=== PATIENT | female | born 1945 | race Caucasian/White ===

== ENCOUNTER 2019-05-08 08:13 | Inpatient (IN) | payer OTHER ==
[2019-05-08] MEDS ORDERED: METOPROLOL TAR 50 MG TAB ONE (08:36)
--- NOTE | 2019-05-08 09:00 | RAD REPORT ---
EXAM DESCRIPTION: RAD - Chest Single View - 05/08/2019 8:44 am CLINICAL HISTORY: PALPITATIONS Chest pain. COMPARISON: CHEST PA AND LAT 2 VIEW dated 10/15/2010 FINDINGS: Portable technique limits examination quality. The lungs are grossly clear. The heart is normal in size. No displaced fractures.Thoracic dextroscoli osis. IMPRESSION: No acute intrathoracic process suspected.
[2019-05-08] MEDS ORDERED: FAMOTIDINE 20 MG/2 ML VIAL IV ONE (09:02)
[2019-05-08] MEDS ORDERED: NA CHLORIDE 0.9% 1,000 ML ONE (09:02)
[2019-05-08] MEDS ORDERED: METOPROLOL TARTRATE 5 MG/5 ML INJ IV ONE (09:02)
[2019-05-08] MEDS ORDERED: ENOXAPARIN 80 MG/0.8 ML SQ ONE (09:02)
[2019-05-08 09:06] LABS: Absolute Lymphocytes (CBC) 1.4 K/uL (0.7-4.9); Basophils % 0.7 % (0-1.3); Hematocrit 43.2 % (36.0-45.0); Lymphocytes % 21.8 % (15.3-44.8); MPV 8.6 fL (7.6-11.3); Protime INR 0.98; RBC Red Blood Cell Count 4.74 M/uL (3.86-4.86)
[2019-05-08 09:20] LABS: ALT/SGPT 32 U/L (12-78); AST/SGOT 24 U/L (15-37); Albumin 3.9 g/dL (3.4-5.0); Alkaline Phosphatase 92 U/L (45-117); BUN Blood Urea Nitrogen 10 mg/dL (7-18); Bicarbonate 26 mmol/L (21-32); Bilirubin Direct 0.2 mg/dL (0-0.2); Bilirubin Total 0.8 mg/dL (0.2-1.0); Glucose Level 112 mg/dL (74-106); Magnesium 2.3 mg/dL (1.8-2.4); NT PRO-BNP 182 pg/mL (<125); Potassium 3.9 mmol/L (3.5-5.1); Protein, Total 7.1 g/dL (6.4-8.2); Sodium Level 145 mmol/L (136-145); Troponin (Emerg Dept Use Only) < 0.02 ng/mL (0.0-0.045)
--- NOTE | 2019-05-08 09:49 | ER ---
Nurse's Notes [facility] Name: Kori Dotson Age: 73 yrs Sex: Female : 1945 Arrival Date: 05/08/2019 Time: 08:17 Bed 3 Private MD: Diagnosis: Atrial fibrillation and flutter-new onset Presentation: 05/08 08:15 Presenting complaint: EMS states: Palpitations and SOB started upon waking at 0615, EKG jl7 showed A. Fib at 150s, gave 20 mg total of Cardizem and HR is now 110s, pt reports resting HR is normally 40-50 bpm. Transition of care: patient was not received from another setting of care. Onset of symptoms was May 08, 2019 at 06:15. Risk Assessment: Do you want to hurt yourself or someone else? Patient reports no desire to harm self or others. Initial Sepsis Screen: Does the patient meet any 2 criteria? No. Patient's initial sepsis screen is negative. Does the patient have a suspected source of infection? No. Patient's initial sepsis screen is negative. Care prior to arrival: Medication(s) given: Normal saline infusion, 250 mL 20 mg Cardizem IV initiated. 20 GA, in the right antecubital area. 08:29 Method Of Arrival: EMS: [facility] jl7 08:29 Acuity: HARSH 2 jl7 Historical: - Allergies: 08:32 PENICILLINS; jl7 - Home Meds: 08:32 amlodipine oral [Active]; olmesartan oral oral [Active]; jl7 - PMHx: 08:32 Hypertension; jl7 - Immunization history:: Adult Immunizations not up to date. - Social history:: Smoking status: Patient/guardian denies using tobacco. - Ebola Screening: : No symptoms or risks identified at this time. Screenin:34 Abuse screen: Denies threats or abuse. Denies injuries from another. Nutritional jl7 screening: No deficits noted. Tuberculosis screening: No symptoms or risk factors identified. Fall Risk IV access (20 points). Total Moon Fall Scale indicates No Risk (0-24 pts). Assessment: 08:15 General: Appears in no apparent distress. uncomfortable, Behavior is calm, cooperative, jl7 appropriate for age. Pain: Denies pain. Neuro: Level of Consciousness is awake, alert, obeys commands, Oriented to person, place, time, situation. Cardiovascular: Reports palpitations, shortness of breath, Denies chest pain, Heart tones present Patient's skin is warm and dry. Respiratory: Airway is patent Respiratory effort is even, unlabored, Respiratory pattern is regular, symmetrical, Breath sounds are clear bilaterally. GI: No signs and/or symptoms were reported involving the gastrointestinal system. : No signs and/or symptoms were reported regarding the genitourinary system. EENT: No signs and/or symptoms were reported regarding the EENT system. Derm: Skin is pink, warm \\T\\ dry. 09:11 Reassessment: Pt reports "I have an irregular HR and my resting HR is normally 40-50 [facility] bpm." Pt's states "Sometimes when she's sleeping her HR drops to 29." ERP aware. 10:00 Reassessment: Patient appears in no apparent distress at this time. Patient and/or jl7 family updated on plan of care and expected duration. Pain level reassessed. Patient is alert, oriented x 3, equal unlabored respirations, skin warm/dry/pink. Patient states symptoms have improved. 12:17 Reassessment: Dr. Tolbert at bedside. jl7 12:33 Reassessment: Attempted to call report, nurse unavailable. jl7 Vital Signs: 08:15 BP 126 / 91; Pulse 120; Resp 16 S; Pulse Ox 100% on R/A; Pain 0/10; jl7 08:34 BP 99 / 79; Pulse 105; Resp 16 S; Pulse Ox 100% on R/A; jl7 08:50 BP 105 / 67; Pulse 109; Temp 97.6(O); jl7 08:52 Weight 65.32 kg (R); jl7 09:00 BP 113 / 76; Pulse 95; Resp 17; Pulse Ox 100% ; sv 09:32 BP 101 / 83; Pulse 59; Resp 16 S; Pulse Ox 100% on R/A; jl7 10:51 BP 92 / 71; Pulse 61; Resp 15 S; Pulse Ox 100% on R/A; jl7 12:00 BP 94 / 67; Pulse 75; Resp 17; Pulse Ox 97% ; sv 12:45 BP 117 / 82; Pulse 85; Resp 20; Pulse Ox 100% on R/A; sv ED Course: 08:15 EKG done, by sound engineering technician. reviewed by Randell Stiles NP. tc 08:15 Maintain EMS IV. Dressing intact. Good blood return noted. Site clean \\T\\ dry. Gauge \\T\\ jl 7 site: 20 right AC. 08:15 Patient has correct armband on for positive identification. Placed in gown. Bed in low jl7 position. Call light in reach. Side rails up X2. equipment monitor phototypesetting on. Pulse ox on. NIBP on. Warm blanket given. 08:17 Patient arrived in ED. ss 08:18 Randell Stiles, BAG LOADER is PHCP. pm1 08:18 Stiven Tamez MD is Attending Physician. pm1 08:29 Kevin Neal RN is Primary Nurse. jl7 08:32 Triage completed. jl7 08:34 Arm band placed on right wrist. jl7 08:44 XRAY Chest (1 view) In Process Unspecified. EDMS 09:44 Rip Denney is Hospitalizing Provider. pm1 09:44 Repeat EKG was done. sm3 09:58 Echocardiogram with doppler done by cdl service technician. tc 11:13 Awaiting bed assignment. sv 13:03 No provider procedures requiring assistance completed. Patient admitted, IV remains in sv place. intact. Administered Medications: 08:35 Drug: NS 0.9% 1000 ml Route: IV; Rate: 1000 ml; Site: right antecubital; jl7 09:42 Follow up: Response: No adverse reaction; IV Status: Completed infusion; IV Intake: jl7 1000ml 08:52 Drug: Lopressor (metoprolol TARTRATE) 50 mg Route: PO; jl7 09:41 Follow up: Response: No adverse reaction jl7 09:23 Drug: Lovenox 1 mg/kg Route: Sub-Q; Site: right lower abdomen; jl7 09:41 Follow up: Response: No adverse reaction jl7 09:23 Drug: NS 0.9% 1000 ml Route: IV; Rate: 1 bolus; Site: right antecubital; jl7 09:32 Drug: Pepcid 20 mg Route: IVP; Site: right antecubital; jl7 09:42 Follow up: Response: No adverse reaction jl7 09:41 Not Given (Hemodynamic Parameters): Lopressor 2.5 mg IVP once; Hold for SBP <100 or HR jl7 <60. 09:41 Not Given (Hemodynamic Parameters): Lopressor 2.5 mg IVP once; Hold for SBP <100 or HR jl7 <60. Intake: 09:42 IV: 1000ml; Total: 1000ml. jl7 Outcome: 09:48 Decision to Hospitalize by Provider. pm1 13:04 Admitted to Tele accompanied by tech, via stretcher, room 203, with chart, Report sv called to Alvina BELTRAN 13:04 Condition: stable 13:04 Instructed on the need for admit. 13:25 Patient left the ED. sv Signatures: Dispatcher [employer] Jayda Coombs, RN RN Marcella Ruffin, RN RN ss Rose Castle, vehicle refinisher EKG Ttc Randell Stiles, BAG LOADER BAG LOADER pm1 Kevin Neal RN RN jl7 Janet Martinez 3
--- NOTE | 2019-05-08 09:49 | EDPHYS ---
Physician Documentation [facility] Name: Kori Dotson Age: 73 yrs Sex: Female : 1945 Arrival Date: 05/08/2019 Time: 08:17 Bed 3 Private MD: ED Physician Stiven Tamez HPI: 05/08 08:36 This 73 yrs old Female presents to ER via EMS with complaints of Palpitations.pm1 08:36 The patient presents with a history of heart racing. Context: The symptoms occur at pm1 rest. Onset: The symptoms/episode began/occurred this morning. Duration: The patient or guardian reports a single episode, that is still ongoing, but improving. Modifying factors: The symptoms are alleviated by given medication by EMS. Associated signs and symptoms: Pertinent negatives: anxiety, chest pain, cough, fever, nausea, SOB, vomiting. Severity of symptoms: in the emergency department the symptoms have improved Pain is currently a 0 / 10. The patient has not experienced similar symptoms in the past. The patient has not recently seen a physician, the patient's primary care provider is Dr. Hernandez, [facility]. Patient woke up this AM with palpitations. Denies history of atrial fibrillation, but reports sinus arrythmia. Patient took aspirin this AM and tried to calm down to see if palpitations would resolve. No improvement so called EMS. On EMS arrival patient with heart rate in 160's. Given Cardizem IV in route to ER. Historical: - Allergies: 08:32 PENICILLINS; jl7 - Home Meds: 08:32 amlodipine oral [Active]; olmesartan oral oral [Active]; jl7 - PMHx: 08:32 Hypertension; jl7 - Immunization history:: Adult Immunizations not up to date. - Social history:: Smoking status: Patient/guardian denies using tobacco. - Ebola Screening: : No symptoms or risks identified at this time. ROS: 08:36 Constitutional: Negative for fever, chills, and weight loss, Eyes: Negative for injury, pm1 pain, redness, and discharge, ENT: Negative for injury, pain, and discharge. 08:36 Neck: Negative for injury, pain, and swelling, Respiratory: Negative for shortness of breath, cough, wheezing, and pleuritic chest pain, Abdomen/GI: Negative for abdominal pain, nausea, vomiting, diarrhea, and constipation, Back: Negative for injury and pain, : Negative for injury, bleeding, discharge, and swelling, MS/Extremity: Negative for injury and deformity, Skin: Negative for injury, rash, and discoloration, Neuro: Negative for headache, weakness, numbness, tingling, and seizure. 08:36 Cardiovascular: Positive for palpitations, Negative for chest pain, edema. Exam: 08:36 Constitutional: This is a well developed, well nourished patient who is awake, alert, pm1 and in no acute distress. Head/Face: Normocephalic, atraumatic. Neck: Trachea midline, no thyromegaly or masses palpated, and no cervical lymphadenopathy. Supple, full range of motion without nuchal rigidity, or vertebral point tenderness. No Meningismus. Chest/axilla: Normal chest wall appearance and motion. Nontender with no deformity. No lesions are appreciated. 08:36 Respiratory: Lungs have equal breath sounds bilaterally, clear to auscultation and percussion. No rales, rhonchi or wheezes noted. No increased work of breathing, no retractions or nasal flaring. Abdomen/GI: Soft, non-tender, with normal bowel sounds. No distension or tympany. No guarding or rebound. No evidence of tenderness throughout. Back: No spinal tenderness. No costovertebral tenderness. Full range of motion. Skin: Warm, dry with normal turgor. Normal color with no rashes, no lesions, and no evidence of cellulitis. MS/ Extremity: Pulses equal, no cyanosis. Neurovascular intact. Full, normal range of motion. 08:36 Cardiovascular: Rate: tachycardic, Rhythm: irregular, Pulses: no pulse deficits are appreciated, Heart sounds: normal, Edema: is not appreciated. 08:36 Neuro: Orientation: is normal, Motor: is normal, moves all fours. Vital Signs: 08:15 BP 126 / 91; Pulse 120; Resp 16 S; Pulse Ox 100% on R/A; Pain 0/10; jl7 08:34 BP 99 / 79; Pulse 105; Resp 16 S; Pulse Ox 100% on R/A; jl7 08:50 BP 105 / 67; Pulse 109; Temp 97.6(O); jl7 08:52 Weight 65.32 kg (R); jl7 09:00 BP 113 / 76; Pulse 95; Resp 17; Pulse Ox 100% ; sv 09:32 BP 101 / 83; Pulse 59; Resp 16 S; Pulse Ox 100% on R/A; jl7 10:51 BP 92 / 71; Pulse 61; Resp 15 S; Pulse Ox 100% on R/A; jl7 12:00 BP 94 / 67; Pulse 75; Resp 17; Pulse Ox 97% ; sv 12:45 BP 117 / 82; Pulse 85; Resp 20; Pulse Ox 100% on R/A; sv MDM: 08:18 Patient medically screened. pm1 08:40 ED course: Patient was given Cardizem by EMS prior to arrival. I did not given them pm1 orders or approval to give Cardizem in route. 09:43 Data reviewed: vital signs. Data interpreted: Pulse oximetry: on room air is 100 %. pm1 Interpretation: normal. Counseling: I had a detailed discussion with the patient and/or guardian regarding: the historical points, exam findings, and any diagnostic results supporting the discharge/admit diagnosis, lab results, radiology results, the need for further work-up and treatment in the hospital. 09:50 Physician consultation: Rip Denney was called at 09:50, was contacted at 09:50, pm1 regarding admission, patient's condition, and will see patient would like consultation with Dr. Locke I contact cardiology articulation officer. 09:57 Physician consultation: Néstor Tolbert MD was called at 09:57, was contacted at 09:57, pm1 regarding consult, patient's condition, and will see patient would like medications started, Betapace 80 mg PO BID. 05/08 08:18 Order name: Basic Metabolic Panel; Complete Time: 09:27 pm1 05/08 08:18 Order name: CBC with Diff; Complete Time: :27 pm1 05/08 08:18 Order name: LFT's; Complete Time: :27 pm1 05/08 08:18 Order name: Magnesium; Complete Time: :27 pm1 05/08 08:18 Order name: NT PRO-BNP; Complete Time: 09:27 pm1 05/08 08:18 Order name: PT-INR; Complete Time: 09:27 pm1 05/08 08:18 Order name: Troponin (emerg Dept Use Only); Complete Time: 09:27 pm1 05/08 08:20 Order name: TSH; Complete Time: 09:27 pm1 05/08 11:30 Order name: Basic Metabolic Panel EDMS 05/08 11:30 Order name: Basic Metabolic Panel EDMS 05/08 11:30 Order name: CBC with Automated Diff EDMS 05/08 11:30 Order name: CBC with Automated Diff EDMS 05/08 11:30 Order name: Troponin I EDMS 05/08 11:30 Order name: Troponin I EDMS 05/08 08:18 Order name: XRAY Chest (1 view); Complete Time: 09:27 pm1 05/08 08:18 Order name: EKG; Complete Time: 08:19 pm1 05/08 08:49 Order name: Echo w/ Doppler malachi 05/08 10:58 Order name: EKG Electrocardiogram EDMS 05/08 11:26 Order name: Diet Heart Healthy; Complete Time: 11:26 jl7 05/08 11:30 Order name: CONS Physician Consult EDMS 05/08 11:30 Order name: Heart Healthy EDMS 05/08 11:30 Order name: EKG Electrocardiogram EDMS 05/08 11:30 Order name: Troponin I EDMS 05/08 08:18 Order name: Cardiac monitoring; Complete Time: 08:35 pm1 05/08 08:18 Order name: EKG - Nurse/Tech; Complete Time: 08:50 pm1 05/08 08:18 Order name: IV Saline Lock; Complete Time: 08:50 pm1 05/08 08:18 Order name: Labs collected and sent; Complete Time: 08:50 pm1 05/08 08:18 Order name: O2 Per Protocol; Complete Time: 08:35 pm1 05/08 08:18 Order name: O2 Sat Monitoring; Complete Time: 08:35 pm1 05/08 11:30 Order name: EKG Electrocardiogram EDMS 05/08 11:30 Order name: EKG Electrocardiogram EDMS 05/08 11:30 Order name: EKG Electrocardiogram EDMS Administered Medications: 08:35 Drug: NS 0.9% 1000 ml Route: IV; Rate: 1000 ml; Site: right antecubital; jl7 09:42 Follow up: Response: No adverse reaction; IV Status: Completed infusion; IV Intake: jl7 1000ml 08:52 Drug: Lopressor (metoprolol TARTRATE) 50 mg Route: PO; jl7 09:41 Follow up: Response: No adverse reaction 09:23 Drug: Lovenox 1 mg/kg Route: Sub-Q; Site: right lower abdomen; 09:41 Follow up: Response: No adverse reaction 09:23 Drug: NS 0.9% 1000 ml Route: IV; Rate: 1 bolus; Site: right antecubital; jl7 09:32 Drug: Pepcid 20 mg Route: IVP; Site: right antecubital; 09:42 Follow up: Response: No adverse reaction :41 Not Given (Hemodynamic Parameters): Lopressor 2.5 mg IVP once; Hold for SBP <100 or HR jl7 <60. 09:41 Not Given (Hemodynamic Parameters): Lopressor 2.5 mg IVP once; Hold for SBP <100 or HR jl7 <60. Disposition: 05/09 05:46 Co-signature as Attending Physician, Stiven Tamez MD I agree with the assessment and malachi plan of care. Disposition: 05/08/19 09:48 Hospitalization ordered by Rip Denney for Inpatient Admission. Preliminary diagnosis is Atrial fibrillation and flutter - new onset. - Bed requested for Telemetry/MedSurg (Inpatient). - Status is Inpatient Admission. sv - Condition is Stable. - Problem is new. - Symptoms have improved. UTI on Admission? No Signatures: Dispatcher [employer] EDMS Lara Hackett Stephanie, RN Stiven Chau MD MD cha Marinas, Patrick, SENIOR COST ESTIMATOR SENIOR COST ESTIMATOR pm1 Kevin Neal RN RN jl7 Corrections: (The following items were deleted from the chart) 05/08 11:24 09:48 Hospitalization Ordered by Rip Denney for Observation. Preliminary diagnosis pm1 is Atrial fibrillation and flutter - new onset. Bed requested for Telemetry/MedSurg (observation). Status is Observation. Condition is Stable. Problem is new. Symptoms have improved. UTI on Admission? No. pm1 11:40 11:24 05/08/2019 09:48 Hospitalization Ordered by Rip Denney for Inpatient bd Admission. Preliminary diagnosis is Atrial fibrillation and flutter - new onset. Bed requested for Telemetry/MedSurg (Inpatient). Status is Inpatient Admission. Condition is Stable. Problem is new. Symptoms have improved. UTI on Admission? No. pm1 13:25 11:40 05/08/2019 09:48 Hospitalization Ordered by Rip Denney for Inpatient sv Admission. Preliminary diagnosis is Atrial fibrillation and flutter - new onset. Bed requested for Telemetry/MedSurg (Inpatient). Status is Inpatient Admission. Condition is Stable. Problem is new. Symptoms have improved. UTI on Admission? No. bd
--- NOTE | 2019-05-08 12:28 | EKG ---
Test Date: 2019-05-08 Test Time: 08:16:53 Aircraft Shipping Checker: AV MEASUREMENT RESULTS: Intervals: Rate: 106 [place]: QRSD: 82 QT: 362 QTc: 480 [place]: P: [place]: QRS: -27 T: 30 INTERPRETIVE STATEMENTS: Atrial fibrillation with rapid ventricular response with premature ventricular or aberrantly conducted complexes Low voltage QRS Cannot rule out Anterior infarct, age undetermined Abnormal ECG Compared to ECG 10/15/2010 14:39:38 Ventricular premature complex(es) now present Low QRS voltage now present Myocardial infarct finding now present Sinus bradycardia no longer present T-wave abnormality no longer present Electronically Signed On 05-08-19 12:26:39 CDT by Néstor Tolbert
--- NOTE | 2019-05-08 12:28 | EKG ---
Test Date: 2019-05-08 Test Time: 09:30:50 Corset Fitter: ELY MEASUREMENT RESULTS: Intervals: Rate: 68 [place]: QRSD: 80 QT: 400 QTc: 425 [place]: P: [place]: QRS: -18 T: 14 INTERPRETIVE STATEMENTS: Atrial fibrillation Low voltage QRS Septal infarct, age undetermined Abnormal ECG Compared to ECG 05/08/2019 08:16:53 Ventricular premature complex(es) no longer present Myocardial infarct finding still present Electronically Signed On 05-08-19 12:26:29 CDT by Néstor Tolbert
--- NOTE | 2019-05-08 12:45 | P.HP ---
Certification for Inpatient Patient admitted to: Observation With expected LOS: <2 Midnights Patient will require the following post-hospital care: None Practitioner: I am a practitioner with admitting privileges, knowledge of patient current condition, hospital course, and medical plan of care. 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 EMS found her with a heart rate in the 160s. She was given a dose of IV Cardizem 20 mg. Her heart rate in the ED had improved to 117 that was in atrial fibrillation. She was given Lopressor 50 mg x 1 dose. Her heart rate improved to the 60s but still in atrial fibrillation. Initial troponin is negative. BMP and CBC unremarkable. She denied any chest pain or shortness of breath. She stated her last stress test and echocardiogram was in March 2019. Patient is placed under observation for further management of new onset AFib. Allergies Penicillins Allergy (Verified 05/08/19 12:00) UNK Home medications list reviewed: Yes - Past Medical/Surgical History Diabetic: No -: Hypertension -: Irregular heartbeat -: Bilateral total knee replacement - Family History Father Notes: Father had bradycardia - Social History Smoking Status: Never smoker Alcohol use: No CD- Drugs: No Caffeine use: No Place of Residence: Home Review of Systems 10-point ROS is otherwise unremarkable Other: General: No fever, no malaise, no unintentional weight loss. Eyes: No eye discharge, Respiratory: No cough, no shortness of breath. CVS: No chest pain, no lightheadedness. GI: No abdominal pain, no nausea no vomit, no constipation, no diarrhea. Genitourinary: No dysuria, no urinary frequency, no incontinence, no hematuria. Musculoskeletal: No joint pains, or joint swelling, no gait instability. Neurology: No headache, no asymmetric, weakness, no problem with swallowing. Except as documented, all other systems reviewed and negative. Physical Examination - Physical Exam General: Alert, In no apparent distress, Oriented x3, Cooperative HEENT: Atraumatic, Normocephalic, PERRLA, Mucous membr. moist/pink Neck: Supple, JVD not distended, No Thyromegaly Respiratory: Clear to auscultation bilaterally, Normal air movement Cardiovascular: No edema, Normal pulses, Irregular heart rate/rhythm Capillary refill: <2 Seconds Gastrointestinal: Normal bowel sounds, Soft and benign, No tenderness Musculoskeletal: No clubbing, No swelling Integumentary: No rashes, No erythema, No cyanosis Neurological: Normal gait, Normal speech, Normal strength at 5/5 x4 extr, Normal affect Lymphatics: No axilla or inguinal lymphadenopathy - Studies Laboratory Data (last 24 hrs) 05/08/19 08:47: PT 11.6, INR 0.98 05/08/19 08:47: WBC 6.5, Hgb 14.6, Hct 43.2, Plt Count 217 05/08/19 08:47: Sodium 145, Potassium 3.9, BUN 10, Creatinine 0.93, Glucose 112 H, Magnesium 2.3, Total Bilirubin 0.8, AST 24, ALT 32, Alkaline Phosphatase 92 Imagings Data: Chest x-ray: No acute intrathoracic process EKG: Atrial fibrillation. Assessment and Plan - Problems (Diagnosis) (1) Atrial fibrillation Current Visit: Yes Status: Acute - Plan Place under observation in telemetry. Continue to trend troponin Echocardiogram has been performed in the ED, results to be followed. Borderline [id number] Score: 2. Cardiology consult Dr. Tolbert recommended [place]. Patient given a dose of Lovenox in the ED Anticoagulation per cardiology recommendation. Hold home antihypertensives due to borderline hypotension. Discharge Plan: Home - Advance Directives Does patient have a Living Will: Yes Does patient have a Durable POA for Healthcare: No - Code Status/Comfort Care Code Status Assessed: Yes Code Status: Full Code
[2019-05-08 13:50] VITALS: BMI 25.4
--- NOTE | 2019-05-08 14:04 | ECHO ---
HEIGHT: 5 ft 3 in WEIGHT: 143 lb 8 oz DATE OF STUDY: 05/08/[address]: Stiven Tamez MD 2-DIMENSIONAL: YES M.MODE: YES DOPPLER: YES COLOR FLOW: YES TDS: NO PORTABLE: YES DEFINITY: NO BUBBLE STUDY: NO DIAGNOSIS: ATRIAL FIBRILLATION NEW ONSET CARDIAC HISTORY: CATHERIZATION: NO SURGERY: NO PROSTHETIC VALVE: NO PACEMAKER: NO MEASUREMENTS (cm) DIASTOLIC (NORMALS) SYSTOLIC (NORMALS) IVSd 1.0 (0.6-1.2) LA Diam 3.7 (1.9-4.0) LVEF 69% LVIDd 4.0 (3.5-5.7) LVIDs 2.5 (2.0-3.5) %FS 38% LVPWd 1.0 (0.6-1.2) Ao Diam 2.6 (2.0-3.7) 2 DIMENSIONAL ASSESSMENT: RIGHT ATRIUM: NORMAL LEFT ATRIUM: NORMAL RIGHT VENTRICLE: NORMAL LEFT VENTRICLE: NORMAL TRICUSPID VALVE: NORMAL MITRAL VALVE: NORMAL PULMONIC VALVE: NORMAL AORTIC VALVE: NORMAL PERICARDIAL EFFUSION: NONE AORTIC ROOT: NORMAL LEFT VENTRICULAR WALL MOTION: NORMAL. DOPPLER/COLOR FLOW: MILD TRICUSPID REGURGITATION. NORMAL RIGHT VENTRICULAR SYSTOLIC PRESSURE. COMMENTS: NORMAL 2D ECHO. MILD TRICUSPID REGURGITATION. ATRIAL FIBRILLATION HEART RATE 65 BEATS PER MINUTE. TECHNOLOGIST: LENCHO HUANG
--- NOTE | 2019-05-08 16:12 | CON ---
History Of Present Illness: Mrs. Dotson is 73. She came to the hospital because she called EMS. He r heart was racing. She has had an irregular heartbeat. Apparently, she was treated with by Dr. Hank Cooper. She takes amlodipine and olmesartan for hypertension. She does not recognize the word atri al fibrillation. She has never felt exactly like she had this morning, but she insists she has an ir regular heartbeat all the time. She is not on an anticoagulant. She uses no tobacco. Does not have diabetes or dyslipidemia. Every year, she gets a stress test and other testing by Dr. Cooper and nakita woodruff looks good. No history of myocardial infarction, stroke, or vascular surgery, stents or othe r heart surgeries. She has had bilateral knee joint replacement surgery. Medications: Outpatient medications have been amlodipine and olmesartan. Physical Examination: General: She appears to be her stated age of 73. Vital Signs: Blood pressure is 100/60 and heart rate is in the 60s. It is irregularly irregular and the monitor shows AFib. Lungs: Clear. Heart: Normal except for the irregular rhythm. Abdomen: Soft. Extremities: Normal. No cyanosis, clubbing, or edema. Distal pulses normal. Diagnostic Data: Electrocardiogram shows AFib. No other abnormalities. Impression: The patient has atrial fibrillation. It is probably new. I doubt if her irregular hear tbeat is atrial fibrillation. I would have thought she would be on an anticoagulant and know the nam e of atrial fibrillation that she was. I think the atrial fibrillation is new and her previous rhyth m was probably premature ventricular contractions. We will give her Betapace if we can establish sin us rhythm. We will give her full anticoagulation and when she goes home, she should probably be on Betapace and olmesartan and Xarelto or Eliquis. JEANMARIE/EDWARD Voice ID: [id number] Report ID: [id number]
[2019-05-08] MEDS: SOTALOL HCL 80 MG TAB PO SCH (17:54)
[2019-05-09 02:37] VITALS: O2SAT 98
[2019-05-09] MEDS: SOTALOL HCL 80 MG TAB PO SCH (05:28)
[2019-05-09 05:58] LABS: Absolute Lymphocytes (CBC) 1.6 K/uL (0.7-4.9); Basophils % 0.7 % (0-1.3); Hematocrit 39.9 % (36.0-45.0); Lymphocytes % 23.8 % (15.3-44.8); MPV 8.6 fL (7.6-11.3); RBC Red Blood Cell Count 4.49 M/uL (3.86-4.86)
[2019-05-09 06:15] LABS: Potassium 3.9 mmol/L (3.5-5.1)
[2019-05-09 06:21] LABS: Urine Appearance CLEAR; Urine Bilirubin NEGATIVE (NEG); Urine Blood NEGATIVE (NEG); Urine Color YELLOW; Urine Glucose NEGATIVE (NEG); Urine Microscopic Reflex NO UMIC; Urine Protein NEGATIVE (NEG); Urine Urobilinogen 0.2 mg/dL (0.2-1.0)
[2019-05-09] MEDS ORDERED: APIXABAN 5 MG TABLET PO SCH (09:00)
[2019-05-09] MEDS ORDERED: ASPIRIN EC 81 MG TAB PO SCH (09:00)
[2019-05-09 09:40] VITALS: BP 94/44; TEMP 97.3
--- NOTE | 2019-05-09 12:11 | EKG ---
Test Date: 2019-05-09 Test Time: 10:00:13 Membership Secretary: [facility] MEASUREMENT RESULTS: Intervals: Rate: 32 ND: 166 QRSD: 82 QT: 518 QTc: 378 [place]: P: 47 ND: 166 QRS: -29 T: 88 INTERPRETIVE STATEMENTS: Marked sinus bradycardia Cannot rule out Anterior infarct, age undetermined ST & T wave abnormality, consider lateral ischemia Abnormal ECG Compared to ECG 05/09/2019 07:38:07 ST (T wave) deviation now present Possible ischemia now present Atrial fibrillation no longer present Ventricular premature complex(es) no longer present Myocardial infarct finding still present Electronically Signed On 05-09-19 12:10:27 CDT by Néstor Tolbert
--- NOTE | 2019-05-09 12:12 | EKG ---
Test Date: 2019-05-09 Test Time: 07:38:07 Well Cleaner: [facility] MEASUREMENT RESULTS: Intervals: Rate: 99 MS: QRSD: 72 QT: 394 QTc: 505 [place]: P: MS: QRS: -11 T: -12 INTERPRETIVE STATEMENTS: Atrial fibrillation with premature ventricular or aberrantly conducted complexes Cannot rule out Anterior infarct, age undetermined Abnormal ECG Compared to ECG 05/08/2019 09:30:50 Ventricular premature complex(es) now present Myocardial infarct finding still present Electronically Signed On 05-09-19 12:10:47 CDT by Néstor Tolbert
--- NOTE | 2019-05-09 13:37 | P.DS ---
Admission Date: 05/08/19 Discharge Date: 05/09/19 Disposition: ROUTINE DISCHARGE Discharge Condition: GOOD Reason for Admission: Palpitation Consultations: Cardiology-Dr. 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 EMS found her with a heart rate in the 160s. She was given a dose of IV Cardizem 20 mg. Her heart rate in the ED had improved to 117 that was in atrial fibrillation. She was given Lopressor 50 mg x 1 dose. Her heart rate improved to the 60s but was still in atrial fibrillation. Initial troponin is negative. BMP and CBC unremarkable. She denied any chest pain or shortness of breath. She stated her last stress test and echocardiogram was in March 2019. Patient was placed under observation for further management of new onset AFib. Hospital Course: Troponin trended x3 was negative. She was seen by cardiology-Dr. Tolbert and patient placed on sotalol and Eliquis. There were plans to electrocardiovert her but she cardioverted to sinus bradycardia on the sotalol. Her heart rate was down to the 30s and 40s with the patient is normal for her. Echocardiogram done was unremarkable showing atrial fibrillation and normal EF. She was asymptomatic during the hospital stay. Her blood pressure was soft and for that matter her antihypertensives are discontinued. Dr. Tolbert recommended to reduce Sotalol to 40 mg b.i.d and to continue Eliquis 5 mg b.i.d. for anticoagulation as outpatient. She is informed to follow with her elevator repairer helper within 1 week to re-evaluate her heart rhythm and rate. Fall precautions advised. Anticoagulation teaching given. Patient is deemed clinically stable for discharge per cardiology. Vital Signs/Physical Exam: Temp Pulse Resp BP Pulse Ox 97.3 F 94 H 15 94/44 L 96 05/09/19 08:00 05/09/19 08:00 05/09/19 08:00 05/09/19 08:00 05/09/19 08:00 General: Alert, In no apparent distress, Oriented x3 HEENT: Mucous membr. moist/pink Neck: Supple, JVD not distended, No Thyromegaly Respiratory: Clear to auscultation bilaterally, Normal air movement Cardiovascular: No edema, Normal pulses, Normal S1 S2, No murmurs (Regular rhythm, bradycardic.) Capillary refill: <2 Seconds Gastrointestinal: Normal bowel sounds, Soft and benign, Non-distended, No tenderness Musculoskeletal: No clubbing, No swelling Neurological: Normal strength at 5/5 x4 extr, Cranial nerves 3-12 intact Laboratory Data at Discharge: WBC 6.9 K/uL (4.3-10.9) 05/09/19 05:42 Hgb 14.0 g/dL (12.0-15.0) 05/09/19 05:42 Hct 39.9 % (36.0-45.0) 05/09/19 05:42 Plt Count 227 K/uL (152-406) 05/09/19 05:42 PT 11.6 SECONDS (9.5-12.5) 05/08/19 08:47 INR 0.98 05/08/19 08:47 Sodium 142 mmol/L (136-145) 05/09/19 05:42 Potassium 3.9 mmol/L (3.5-5.1) 05/09/19 05:42 BUN 17 mg/dL (7-18) 05/09/19 05:42 Creatinine 1.15 mg/dL (0.55-1.3) 05/09/19 05:42 Glucose 96 mg/dL (74-106) 05/09/19 05:42 Magnesium 2.3 mg/dL (1.8-2.4) 05/08/19 08:47 Total Bilirubin 0.8 mg/dL (0.2-1.0) 05/08/19 08:47 AST 24 U/L (15-37) 05/08/19 08:47 ALT 32 U/L (12-78) 05/08/19 08:47 Alkaline Phosphatase 92 U/L (45-117) 05/08/19 08:47 Troponin I 0.06 ng/mL (0.0-0.045) H 05/08/19 19:43 Home Medications: Aspirin [Adult Low Dose Aspirin EC] 81 mg PO DAILY 05/08/19 Atorvastatin Calcium 20 mg PO BEDTIME 05/08/19 Apixaban [Eliquis] 5 mg PO BID 30 Days #60 tablet 05/09/19 Sotalol HCl [Betapace*] 40 mg PO BID 6AM 6PM 30 Days #30 tab 05/09/19 New Medications: Apixaban [Eliquis] 5 mg PO BID 30 Days #60 tablet Sotalol HCl [Betapace*] 40 mg PO BID 6AM 6PM 30 Days #30 tab Patient Discharge Instructions: fall precautions Diet: AHA Activity: Ad rayray
[2019-05-09] MEDS ORDERED: RIVAROXABAN 20 MG TABLET PO SCH (17:00)
== END 2019-05-09 14:35 | disposition home or self-care (01) | DRG 310 ==
LOC: ER 08:13 → ERHOLD 11:22 → 2ND 13:07
PROVIDERS: ADMIT Internal Medicine; ATTEND Internal Medicine
DX: I48.91 Unspecified atrial fibrillation (principal); I10 Essential (primary) hypertension; I95.9 Hypotension, unspecified
CPT/HCPCS: 36415; 71045; 80048; 80076; 81003; 83735; 83880; 84443; 84484; 85025; 85610; 93005; 93306; 96361; 96372; 96374; 99285; J1650; J7030

== ENCOUNTER 2020-11-05 13:44 | Emergency (ER) | payer OTHER ==
[2020-11-05] MEDS ORDERED: FUROSEMIDE 100 MG/10 ML VIAL IV ONE (16:37)
[2020-11-05 17:15] LABS: Absolute Lymphocytes (CBC) 2.2 K/uL (0.7-4.9); Basophils % 0.5 % (0-1.3); Hematocrit 37.9 % (36.0-45.0); Lymphocytes % 25.3 % (15.3-44.8); MPV 8.3 fL (7.6-11.3); RBC Red Blood Cell Count 4.16 M/uL (3.86-4.86)
[2020-11-05 17:36] LABS: Protime INR 1.34
--- NOTE | 2020-11-05 17:41 | RAD REPORT ---
EXAM DESCRIPTION: CT - Head Brain Wo Cont - 11/05/2020 5:29 pm CLINICAL HISTORY: TIA COMPARISON: No comparisons TECHNIQUE: Axial 5 mm thick images of the head were obtained without IV contrast. All CT scans are performed using dose optimization technique as appropriate and may include automated exposure control or mA/KV adjustment according to patient size. FINDINGS: No intracranial hemorrhage, mass, edema or shift of mid-line structures. No acute infarcti on changes seen. No abnormal extra-axial fluid collections. Atrophy and chronic ischemic changes are mild for age. Ventricles are in proportion to any volume loss. Patient has arterial calcifications an d dense falx calcifications. Mastoid air cells and visualized portions of the paranasal sinuses are clear. No acute bony findings. IMPRESSION: Negative non-contrast CT head examination for acute finding. Mild atrophy and chronic ischemic change.
[2020-11-05 17:43] LABS: ALT/SGPT 40 U/L (12-78); AST/SGOT 24 U/L (15-37); Albumin 3.8 g/dL (3.4-5.0); Alkaline Phosphatase 83 U/L (45-117); BUN Blood Urea Nitrogen 18 mg/dL (7-18); Bicarbonate 27 mmol/L (21-32); Bilirubin Direct 0.2 mg/dL (0-0.2); Bilirubin Total 0.6 mg/dL (0.2-1.0); Glucose Level 151 mg/dL (74-106); Magnesium 2.3 mg/dL (1.8-2.4); NT PRO-BNP 154 pg/mL (<450); Potassium 3.3 mmol/L (3.5-5.1); Protein, Total 6.7 g/dL (6.4-8.2); Sodium Level 140 mmol/L (136-145); Troponin (Emerg Dept Use Only) < 0.02 ng/mL (0.0-0.045)
[2020-11-05] MEDS ORDERED: POTASSIUM CL SA 10 MEQ TAB PO ONE (18:08)
--- NOTE | 2020-11-05 18:27 | EDPHYS ---
Physician Documentation [facility] Name: Kori Dotson Age: 75 yrs Sex: Female : 1945 Arrival Date: 11/05/2020 Time: 13:44 Bed 23 Private MD: ED Physician Jacob Garcia HPI: 11/05 17:42 This 75 yrs old Female presents to ER via Ambulatory with complaints of sent jr8 by r/o jai. 17:42 Patient stated that yesterday she had several episodes of an odd euphoric sensation jr8 that made her feel like she was having out of body experience. Stated that it would last for about 60 seconds then would get warm sensation down the rest of her body and then would go away. Stated that she recalls the events and can continue to do things while it is happening. Denies having these symptoms in past. Denies any other neurologic symptoms . Severity of symptoms: At their worst the symptoms were very mild in the emergency department the symptoms have resolved. The patient has not experienced similar symptoms in the past. The patient has not recently seen a physician. Historical: - Allergies: 14:04 PENICILLINS; ca1 - Home Meds: 14:04 Eliquis oral oral [Active]; ca1 - PMHx: 14:04 Hypertension; Atrial Fib; Rheumatoid Arthritis; ca1 - PSHx: 14:04 Ovary removed; Cholecystectomy; ca1 - Immunization history:: Client reports having NOT received the Covid vaccine. Pneumococcal vaccine is not up to date, Flu vaccine is not up to date. - Social history:: Smoking status: Patient denies any tobacco usage or history of. ROS: 17:42 Eyes: Negative for injury, pain, redness, and discharge, ENT: Negative for injury, jr8 pain, and discharge, Neck: Negative for injury, pain, and swelling, Cardiovascular: Negative for chest pain, palpitations, and edema, Respiratory: Negative for shortness of breath, cough, wheezing, and pleuritic chest pain, Abdomen/GI: Negative for abdominal pain, nausea, vomiting, diarrhea, and constipation, Back: Negative for injury and pain, MS/Extremity: Negative for injury and deformity, Skin: Negative for injury, rash, and discoloration, Neuro: Negative for headache, weakness, numbness, tingling, and seizure. Exam: 17:42 Eyes: Pupils equal round and reactive to light, extra-ocular motions intact. Lids and jr8 lashes normal. Conjunctiva and sclera are non-icteric and not injected. Cornea within normal limits. Periorbital areas with no swelling, redness, or edema. ENT: Nares patent. No nasal discharge, no septal abnormalities noted. Tympanic membranes are normal and external auditory canals are clear. Oropharynx with no redness, swelling, or masses, exudates, or evidence of obstruction, uvula midline. Mucous membranes moist. Neck: Trachea midline, no thyromegaly or masses palpated, and no cervical lymphadenopathy. Supple, full range of motion without nuchal rigidity, or vertebral point tenderness. No Meningismus. Cardiovascular: Regular rate and rhythm with a normal S1 and S2. No gallops, murmurs, or rubs. Normal PMI, no JVD. No pulse deficits. Respiratory: Lungs have equal breath sounds bilaterally, clear to auscultation and percussion. No rales, rhonchi or wheezes noted. No increased work of breathing, no retractions or nasal flaring. Abdomen/GI: Soft, non-tender, with normal bowel sounds. No distension or tympany. No guarding or rebound. No evidence of tenderness throughout. Back: No spinal tenderness. No costovertebral tenderness. Full range of motion. Skin: Warm, dry with normal turgor. Normal color with no rashes, no lesions, and no evidence of cellulitis. MS/ Extremity: Pulses equal, no cyanosis. Neurovascular intact. Full, normal range of motion. Neuro: Awake and alert, GCS 15, oriented to person, place, time, and situation. Cranial nerves II-XII grossly intact. Motor strength 5/5 in all extremities. Sensory grossly intact. Cerebellar exam normal. Normal gait. 17:42 ECG was reviewed by the Attending Physician. Vital Signs: 13:56 BP 125 / 68; Pulse 44; Resp 16 S; Temp 97.6(TE); Pulse Ox 100% on R/A; Weight 62.6 kg ca1 (R); Height 5 ft. 1 in. (154.94 cm) (R); Pain 0/10; 17:44 BP 123 / 65; Pulse 36; Resp 18; Pulse Ox 100% on R/A; zb 18:43 BP 120 / 68; Pulse 37; Resp 16; Pulse Ox 97% on R/A; zb 13:56 Body Mass Index 26.07 (62.60 kg, 154.94 cm) ca1 13:56 Pt states, " i have low HR and it even goes down to 39" ca1 MDM: 16:49 Patient medically screened. [facility] 17:46 ED course: Patient with known bradycardic history in the 30s and 40s. Has been seen by [facility] cardiology for this and without acute findings . 18:24 Data reviewed: vital signs, nurses notes, lab test result(s), EKG, radiologic studies, [facility] CT scan, plain films. Data interpreted: Pulse oximetry: on room air is 100 %. Interpretation: normal. Counseling: I had a detailed discussion with the patient and/or guardian regarding: the historical points, exam findings, and any diagnostic results supporting the discharge/admit diagnosis, lab results, radiology results, the need for outpatient follow up, a family practitioner, to return to the emergency department if symptoms worsen or persist or if there are any questions or concerns that arise at home. ED course: No other acute findings on labs or imaging that would explain symptoms. Patient will f/u with cardiology. Knows to come back if worse . 11/05 16:49 Order name: Basic Metabolic Panel; Complete Time: 17:46 [facility] 11/05 16:49 Order name: CBC with Diff; Complete Time: 17:40 11/05 16:49 Order name: LFT's; Complete Time: 17:46 11/05 16:49 Order name: Magnesium; Complete Time: 17:46 11/05 16:49 Order name: NT PRO-BNP; Complete Time: 17:46 11/05 16:49 Order name: PT-INR; Complete Time: 17:46 11/05 16:49 Order name: Troponin (emerg Dept Use Only); Complete Time: 17:46 11/05 16:49 Order name: XRAY Chest (1 view); Complete Time: 18:33 11/05 16:49 Order name: EKG; Complete Time: 16:50 11/05 16:49 Order name: Cardiac monitoring; Complete Time: 17:01 11/05 16:49 Order name: EKG - Nurse/Tech; Complete Time: 17:01 11/05 16:49 Order name: IV Saline Lock; Complete Time: 17:06 11/05 16:49 Order name: CT Head Brain wo Cont; Complete Time: 17:42 11/05 16:49 Order name: Labs collected and sent; Complete Time: 17:11/05 16:49 Order name: O2 Per Protocol; Complete Time: 17:11/05 16:49 Order name: O2 Sat Monitoring; Complete Time: 17: EC:42 Rate is 35 beats/min. Rhythm is regular, Sinus bradycardia. QRS [place] is Normal. [place] jr8 interval is normal at 168 msec. QRS interval is normal at 88 msec. QT interval is normal at 380 msec. No Q waves. T waves are Inverted in leads V1, V2. No ST changes noted. Clinical impression: Sinus bradycardia. Interpreted by me. Reviewed by me. Administered Medications: 17:50 Drug: Potassium Chloride 20 mEq Route: PO; zb 18:40 Follow up: Response: No adverse reaction zb Disposition: 18:56 Co-signature as Attending Physician, Jacob Garcia MD. rn Disposition: 11/05/20 18:27 Discharged to Home. Impression: Bradycardia, unspecified. - Condition is Stable. - Discharge Instructions: Bradycardia, Adult. - Medication Reconciliation Form, Thank You Letter, Antibiotic Education, Prescription Opioid Use form. - Follow up: Private Physician; When: 2 - 3 days; Reason: Recheck today's complaints, Continuance of care, Re-evaluation by your physician. - Problem is new. - Symptoms have improved. Signatures: Dispatcher [employer] EDMS Jacob Garcia MD MD rn Roszak, Josh, PA PA jr8 Leticia Salgado RN RN ca1 Brown, Zipporah, RN RN zb Corrections: (The following items were deleted from the chart) 18:44 18:27 11/05/2020 18:27 Discharged to Home. Impression: Bradycardia, unspecified. zb Condition is Stable. Forms are Medication Reconciliation Form, Thank You Letter, Antibiotic Education, Prescription Opioid Use. Follow up: Private Physician; When: 2 - 3 days; Reason: Recheck today's complaints, Continuance of care, Re-evaluation by your physician. Problem is new. Symptoms have improved. jr8
--- NOTE | 2020-11-05 18:27 | ER ---
Nurse's Notes [facility] Name: Kori Dotson Age: 75 yrs Sex: Female : 1945 Arrival Date: 11/05/2020 Time: 13:44 Bed 23 Private MD: Diagnosis: Bradycardia, unspecified Presentation: 11/05 13:56 Chief complaint: Patient states: Had TIAs yesterday, started in the morning before I ca1 got up. I probably had 5 episodes yesterday, every couple hours. I haven't had anything today. Had same kind of symptoms several years ago, but I didn't really have it checked. My symptoms was my mind got foggy, it lasts couple minutes, then I feel like this jones in my legs. Denies weakness or dizziness yesterday, today. Called strategic planning specialist today regarding symptoms yesterday and advised to come to the ER. Coronavirus screen: Client denies travel out of the [place] in the last 14 days. At this time, the client does not indicate any symptoms associated with coronavirus-19. Ebola Screen: Patient negative for fever greater than or equal to 101.5 degrees Fahrenheit, and additional compatible Ebola Virus Disease symptoms Patient denies exposure to infectious person. Patient denies travel to an Ebola-affected area in the 21 days before illness onset. No symptoms or risks identified at this time. Initial Sepsis Screen: Does the patient meet any 2 criteria? No. Patient's initial sepsis screen is negative. Does the patient have a suspected source of infection? No. Patient's initial sepsis screen is negative. Risk Assessment: Do you want to hurt yourself or someone else? Patient reports no desire to harm self or others. Onset of symptoms was November 04, 2020. 13:56 Method Of Arrival: Ambulatory ca1 13:56 Acuity: HARSH 3 ca1 Historical: - Allergies: 14:04 PENICILLINS; ca1 - Home Meds: 14:04 Eliquis oral oral [Active]; ca1 - PMHx: 14:04 Hypertension; Atrial Fib; Rheumatoid Arthritis; ca1 - PSHx: 14:04 Ovary removed; Cholecystectomy; ca1 - Immunization history:: Client reports having NOT received the Covid vaccine. Pneumococcal vaccine is not up to date, Flu vaccine is not up to date. - Social history:: Smoking status: Patient denies any tobacco usage or history of. Screenin:07 Abuse screen: Denies threats or abuse. Denies injuries from another. Nutritional zb screening: No deficits noted. Tuberculosis screening: No symptoms or risk factors identified. Fall Risk None identified. Assessment: 17:06 Reassessment: ECP at bedside. zb 17:30 Reassessment:. General: Appears in no apparent distress. comfortable, Behavior is calm, zb cooperative. Pain: Denies pain. Neuro: Level of Consciousness is awake, alert, obeys commands, Oriented to person, place, time, situation, Accounts Payable Specialist are equal bilaterally Moves all extremities. Full function Facial symmetry appears normal, Intact. Cardiovascular: Capillary refill < 3 seconds Patient's skin is warm and dry. Rhythm is sinus bradycardia. Respiratory: Airway is patent Respiratory effort is even, unlabored, Respiratory pattern is regular, symmetrical. GI: No signs and/or symptoms were reported involving the gastrointestinal system. : No signs and/or symptoms were reported regarding the genitourinary system. EENT: No signs and/or symptoms were reported regarding the EENT system. Derm: Skin is intact, is healthy with good turgor, Skin is dry, Skin is normal, Skin temperature is warm. Musculoskeletal: Range of motion: intact in all extremities. 18:43 Reassessment: Patient appears in no apparent distress at this time. Patient and/or zb family updated on plan of care and expected duration. Pain level reassessed. Patient is alert, oriented x 3, equal unlabored respirations, skin warm/dry/pink. d/c instructions given. pt denies pain. gait even and steady upon d/c. Vital Signs: 13:56 BP 125 / 68; Pulse 44; Resp 16 S; Temp 97.6(TE); Pulse Ox 100% on R/A; Weight 62.6 kg ca1 (R); Height 5 ft. 1 in. (154.94 cm) (R); Pain 0/10; 17:44 BP 123 / 65; Pulse 36; Resp 18; Pulse Ox 100% on R/A; zb 18:43 BP 120 / 68; Pulse 37; Resp 16; Pulse Ox 97% on R/A; zb 13:56 Body Mass Index 26.07 (62.60 kg, 154.94 cm) ca1 13:56 Pt states, " i have low HR and it even goes down to 39" ca1 ED Course: 13:44 Patient arrived in ED. as 14:01 Triage completed. ca1 14:04 Arm band placed on right wrist. ca1 16:48 Chaz Palomares PA is PHCP. jr8 16:48 Jacob Garcia MD is Attending Physician. jr8 17:04 Alla Singleton RN is Primary Nurse. zb 17:07 Patient has correct armband on for positive identification. precision lens polisher on. Pulse zb ox on. NIBP on. Door closed. Noise minimized. 17:10 Inserted saline lock: 20 gauge in right antecubital area, using aseptic technique. mt Blood collected. 17:29 CT Head Brain wo Cont In Process Unspecified. EDMS 17:59 XRAY Chest (1 view) In Process Unspecified. EDMS 18:43 No provider procedures requiring assistance completed. IV discontinued, intact, zb bleeding controlled, No redness/swelling at site. Pressure dressing applied. Administered Medications: 17:50 Drug: Potassium Chloride 20 mEq Route: PO; zb 18:40 Follow up: Response: No adverse reaction zb Outcome: 18:27 Discharge ordered by . jr8 18:44 Discharged to home ambulatory. zb 18:44 Condition: stable 18:44 Discharge instructions given to patient, Instructed on discharge instructions, follow up and referral plans. Demonstrated understanding of instructions, follow-up care. 18:44 Patient left the ED. zb Signatures: Dispatcher [employer] EDMS Lexy Cates Josh, PA PA jr8 Ashwini Hernandez ct Leticia Salgado RN RN ca1 Alla Singleton RN RN zb
--- NOTE | 2020-11-05 18:28 | RAD REPORT ---
EXAM DESCRIPTION: RAD - Chest Single View - 11/05/2020 5:59 pm CLINICAL HISTORY: DYSPNEA COMPARISON: Portable May 2019 TECHNIQUE: AP portable chest image was obtained 11/05/2020 5:59 pm . FINDINGS: Lungs are clear. Interstitial pattern matches comparison. Heart and vasculature are normal . No measurable pleural effusion and no pneumothorax. No acute bony abnormality seen. No acute aortic findings suspected. IMPRESSION: No acute cardiopulmonary process. No significant change from comparison study.
--- NOTE | 2020-11-06 08:51 | EKG ---
Test Date: 2020-11-05 Test Time: 16:57:27 [employer] Teacher: YENY MEASUREMENT RESULTS: Intervals: Rate: 35 HI: 168 QRSD: 88 QT: 498 QTc: 380 [place]: P: 21 HI: 168 QRS: -26 T: 66 INTERPRETIVE STATEMENTS: Marked sinus bradycardia ST abnormality, possible digitalis effect Abnormal ECG Compared to ECG 05/09/2019 10:00:13 Myocardial infarct finding no longer present Possible ischemia no longer present ST (T wave) deviation still present Electronically Signed On 11-06-20 08:48:36 CDT by Marco Kate
== END 2020-11-05 18:44 | disposition home or self-care (01) ==
LOC: ER 13:44
DX: R00.1 Bradycardia, unspecified (principal); I10 Essential (primary) hypertension; I48.91 Unspecified atrial fibrillation; Z79.01 Long term (current) use of anticoagulants; Z88.0 Allergy status to penicillin
CPT/HCPCS: 36415; 70450; 71045; 80048; 80076; 83735; 83880; 84484; 85025; 85610; 93005; 99284

== ENCOUNTER 2022-05-31 07:23 | Emergency (ER) | payer OTHER ==
--- OUTSIDE RECORDS SUMMARY | 2022-05-31 07:27 | XMS REPORT | Continuity of Care Document ---
:1945 Author Organization [facility] t Address [address] [place] [address] Care Team Providers Name Role Phone Alex HERNANDEZ, Dimitris Primary Care Physician [phone] Rodríguez Chacko MD Attending Clinician Swati HERNANDEZ, Ashlie Hagen Attending Clinician [phone] Lolita Stiles CRNA Attending Clinician [phone] RODRÍGUEZ CHACKO Admitting Clinician Unavailable Payers Payer Name Policy Type Policy Number Effective Date Expiration Date S ource Problems Condition Condition Condition Status Onset Resolution Last Treating Co mments Source Name Details Category Date Date Treatment Clinician Date Rheumatoid Rheumatoid Disease Active Overview : [facility] involving [facility]: g of this H ospita multiple multiple 00 note l sites with sites with might be positive positive different rheumatoid rheumatoid from the factor factor original. RF/CCP-, AVISE+, radiocarp al and mid carpal synovitis . Tenosynov itis and erosions in the distal scaphoid and lunate on MRI right hand. Osteoarthr Osteoarthr Disease Active M ethodi itis itis 03-23 00:00: Hospita 00 l Osteopenia Osteopenia Disease Active M ethodi 03-23 00:00: Hospita 00 l Hypertensi Hypertensi Disease Active M ethodi on on 03-23 00:00: Hospita 00 l Mitral Mitral Disease Active Methodi valve valve 03-23 prolapse prolapse 00:00: Hospit a 00 l Cardiac Cardiac Disease Active Methodi arrhythmia arrhythmia 03-23 , , 00:00: Hospita unspecifie unspecifie 00 l d d Drug-induc Drug-induc Disease Active Overview : Methodi ed ed 03-[address] dyspepsia dyspepsia 00:00: g of this H ospita 00 note l might be different from the original. Bisphosph roxie related Allergies, Adverse Reactions, Alerts Allergy Allergy Status Severity Reaction(s) Onset Inactive Treating Comm ents Source Name Type Date Date Clinician Hydrocod Propensi Active Method i one ty to 03-23 adverse 00:00: Hospita reaction 00 l s to drug Penicill Propensi Active Method i ins ty to 03-23 adverse 00:00: Hospita reaction 00 l s to drug Family History Family Member Diagnosis Comments Start Date Stop Date Source Natural brother Scoliosis [facility] Natural brother Diabetes [facility] Natural father Alzheimer's disease [facility] mother Stroke [facility] Social History Social Habit Start Date Stop Date Quantity Comments Source Alcohol intake 2022-03-29 2022-03-29 Current drinker [facility] 00:00:00 00:00:00 of [facility] (finding) Tobacco use and 2017-04-19 2017-04-19 Smokeless tobacco [facility] exposure 00:00:00 00:00:00 non-user Hospital Sex Ass[birth year] At [birth year] Denominational 00:00:00 00:00:00 Hospital Smoking Status Start Date Stop Date Source Never smoked tobacco [facility] ospital Medications Ordered Filled Start Stop Current Ordering Indication Dosage Frequency Signature Comments Components Source Medication Medication Date Date Medication? Clinician (SIG) Name Name apixaban Yes 2.5mg Q.5D Take 2.5 Meth landy (ELIQUIS) 8-[address] 2.5 mg 10:46: mouth 2 Hospita tablet 35 (two) l times a day. olmesartan- Yes 1{tbl} QD Take 1 Me thodi hydrochloro 8-[address] thiazide 10:46: mouth Hospita (BENICAR 06 daily. l HCT) 20-12.5 mg per tablet alendronate 2016-08 No Metho di (FOSAMAX) 03-12 st 70 MG 00:00: 00:00 Hospita tablet 00 :00 l amLODIPine 2021- No 2.5mg QD Take 2.5 M ethodi (NORVASC) 03-[address] 2.5 mg 00:00: 00:00 mouth once Hosp mira tablet 00 :00 daily. l atorvastati Yes 20mg QD Take 20 mg Methodi n (LIPITOR) 03-[address] 20 MG 00:00: once Hospita tablet 00 daily. l Vital Signs Vital Name Observation Time Observation Value Comments Source Systolic blood 2022-03-12 15:00:00 135 mm[Hg[facility] Di[facility] blood 2022-03-12 15:00:00 63 mm[Hg] [facility] pressure Heart rate 2022-03-12 15:00:00 46 /min [facility] Respiratory rate 2022-03-12 15:00:00 17 /min [facility] Oxygen saturation in 2022-03-12 15:00:00 98 /min [facility] Arterial blood by Pulse oximetry Body temperature 2022-03-12 14:33:00 36.22 Karen [facility] Body height 2022-03-12 14:02:00 157.5 cm [facility] Body weight 2022-03-12 14:02:00 59.875 kg [facility] BMI 2022-03-12 14:02:00 24.14 kg/m2 [facility] Procedures Procedure Date / Time Performing Source Performed Clinician SURGICAL PATHOLOGY REQUEST 2022-03-12 Rodríguez Chacko [facility] 16:49:00 [facility] ESOPHAGOGASTRODUODENOSCOPY (EGD) 2022-03-12 Dharmesh Chacko 14:09:00 Hospital COVID-19 QUALITATIVE RT-PCR 2022-03-10 Rodríguez Chacko [facility] 17:18:00 [facility] Plan of Care Planned Activity Planned Date Details Comments Source Future Scheduled 2022-04-14 HEPATITIS B VACCINES [facility] Test 16:42:22 (1 of 3 - 3-dose series) [code = HEPATITIS B VACCINES (1 of 3 - 3-dose series)] Future Scheduled 2022-04-14 COVID-19 VACCINE (#1) [facility] Test 16:42:22 [code = COVID-19 VACCINE (#1)] Future Scheduled 2022-04-14 65+ [facility] 16:42:22 VACCINE (1 - PCV) [code = 65+ PNEUMOCOCCAL VACCINE (1 - PCV)] Future Scheduled 2022-04-14 Hepatitis C screening [facility] Test 16:42:22 (procedure) [code = 096665484] Future Scheduled 2022-04-14 COLONOSCOPY SCREENING [facility] Test 16:42:22 [code = COLONOSCOPY SCREENING] Future Scheduled 2022-04-14 SHINGLES VACCINES (1 [facility] Test 16:42:22 of 2) [code = SHINGLES VACCINES (1 of 2)] Future Scheduled 2022-04-14 INFLUENZA VACCINE [facility] Test 16:42:22 [code = INFLUENZA VACCINE] Encounters Start End Encounter Admission Attending Care Care Encounter Source Date/Time Date/Time Type Type Clinicians Facility Department ID 2022-03-12 2022-03-12 Hospital [facility] 1.2.840.1 [id number] Methodi 08:33:00 10:46:00 Encounter Rodríguez [id number] 3.430.2.7 Hospit a .3.123573 l .8 2022-03-12 2022-03-12 Surgery [facility], 1.2.840.1 [id number] Methodi 09:50:00 10:20:[id number] 3.430.2.7 Hospit a .3.290509 l .8 2022-03-12 2022-03-12 Anesthesia Swati Ashlie [place] 1.2.840. 1 [id number] Methodi 09:12:00 09:34:00 Event Lolita Stiles Villatoro [id number] 3.430.2.7 Hospit a .3.508675 l .8 2022-03-12 2022-03-12 Outpatient [facility] [id number] 00:00:00 00:00:[address] 2022-03-10 2022-03-10 Travel 1.2.840.1 [id number] Methodi 00:00:00 00:00:[id number] 3.430.2.7 0.2.7.3.698 Ho spita .3.190348 084.8 l .8 2022-03-10 2022-03-10 Outpatient [facility] [id number] 00:00:00 00:00:00 [address] Results Test Description Test Time Test Comments Results Result Comments Source Surgical pathology request 2022-03-15 21:05:10 Test Item Value Reference Range Interpretation Comme nts Case number (test code = 3857359) [id number] Surgical pathology report (test code = See link below for PDF Lab R eport 9151) Result status (test code = 8080677) This is Final Report for [id number] [id number] [Presence] in Respiratory specimen by SHIRA with probe [id number] 19:52:54 Test Item Value Reference Range Interpretation Comments SARS-CoV-2 (COVID-19) RNA Not detected [Presence] in Respiratory specimen by SHIRA with probe detection (test code = 37009-5) Whether patient is employed in a Unknown healthcare setting (test code = 66066-6) Whether the patient has symptoms Unknown related to condition of interest (test code = 18419-2) Whether the patient was Unknown hospitalized for condition of interest (test code = 07275-5) Whether the patient was admitted Unknown to intensive care unit (ICU) for condition of interest (test code = 83112-5) Whether patient resides in a Unknown congregate care setting (test code = 75641-0) status (test code = Unknown 07747-8) Date and time of symptom onset Unknown (test code = 26327-6) [facility]
[2022-05-31] MEDS ORDERED: NA CHLORIDE 0.9% 500 ML ONE (07:55)
[2022-05-31] MEDS ORDERED: ONDANSETRON 4 MG/2 ML VIAL ONE (07:55)
[2022-05-31] MEDS ORDERED: FAMOTIDINE 20 MG/2 ML VIAL IV ONE (07:55)
[2022-05-31] MEDS ORDERED: MORPHINE 4 MG/ML SYR ONE (07:55)
[2022-05-31 08:20] LABS: Absolute Lymphocytes (CBC) 0.7 K/uL (0.7-4.9); Hematocrit 39.4 % (36.0-45.0); Lymphocytes % 4.7 % (15.3-44.8); MCV 89.8 fL (80-100); MPV 8.1 fL (7.6-11.3); RBC Red Blood Cell Count 4.39 M/uL (3.86-4.86)
[2022-05-31 08:42] LABS: Albumin 3.6 g/dL (3.4-5.0); Bilirubin Total 1.1 mg/dL (0.2-1.0); Potassium 3.7 mmol/L (3.5-5.1); Protein, Total 6.6 g/dL (6.4-8.2)
--- NOTE | 2022-05-31 09:05 | RAD REPORT ---
EXAM DESCRIPTION: CT - Abdomen Pelvis W Contrast - 05/31/2022 8:52 am CLINICAL HISTORY: Abdominal pain COMPARISON: none. TECHNIQUE: Computed axial tomography of the abdomen pelvis was obtained. 100 cc Isovue-300 was admin istered intravenously. Oral contrast was not requested which limits evaluation of bowel and appendix All CT scans are performed using dose optimization technique as appropriate and may include automated exposure control or mA/KV adjustment according to patient size. FINDINGS: A cholecystectomy has been performed Liver, spleen, pancreas and kidneys unremarkable. Small adrenal calcifications are chronic and benign Normal appendix 2.7 centimeter left ovarian cyst Diverticula stem from the colon. Mild stranding adjacent to the sigmoid colon compatible with diverti culitis. A small amount of free fluid in the pelvis. No abscess seen. No free air IMPRESSION: Mild to moderate sigmoid diverticulitis
[2022-05-31] MEDS ORDERED: metroNIDAZOLE 500 MG TABLET ONE (09:35)
[2022-05-31] MEDS ORDERED: CIPROFLOXACIN HCL 500 MG TAB ONE (09:35)
--- NOTE | 2022-05-31 11:12 | ER ---
Nurse's Notes [facility] Name: Francheska Dotson Age: 76 yrs Sex: Female : 1945 Arrival Date: 05/31/2022 Time: 07:30 Bed 8 Private MD: Dimitris Andrade R Diagnosis: Abdominal pain, Generalized;Lower abdominal pain, unspecified;Diverticulitis of large intestine without perforation or abscess without bleeding-Sigmoid Presentation: 05/31 07:36 Chief complaint: Patient states: severe lower abd pain since Tuesday . +nausea , iw normal BM yesterday. Coronavirus screen: At this time, the client does not indicate any symptoms associated with coronavirus-19. Ebola Screen: Patient negative for fever greater than or equal to 101.5 degrees Fahrenheit, and additional compatible Ebola Virus Disease symptoms Patient denies exposure to infectious person. Patient denies travel to an Ebola-affected area in the 21 days before illness onset. No symptoms or risks identified at this time. Initial Sepsis Screen: Does the patient meet any 2 criteria? No. Patient's initial sepsis screen is negative. Does the patient have a suspected source of infection? No. Patient's initial sepsis screen is negative. Risk Assessment: Do you want to hurt yourself or someone else? Patient reports no desire to harm self or others. Onset of symptoms was May 29, 2022. 07:36 Method Of Arrival: Ambulatory iw 07:36 Acuity: HARSH 3 iw Triage Assessment: 11:33 General: Appears. ph Historical: - Allergies: 07:37 PENICILLINS; iw - Home Meds: 07:37 Eliquis 5 mg oral tab 2 times per day [Active]; atorvastatin 20 mg oral tab once daily iw [Active]; olmesartan 20 mg oral tab once daily [Active]; pantoprazole 40 mg oral TbEC once daily [Active]; - PMHx: 07:37 Atrial Fib; Hypertension; Rheumatoid Arthritis; iw - PSHx: 07:37 knee; Cholecystectomy; ovary removed; iw - Immunization history:: Adult Immunizations not immunized. - Social history:: Smoking status: Patient denies any tobacco usage or history of. Screenin:39 Abuse screen: Denies threats or abuse. Denies injuries from another. Nutritional ph screening: No deficits noted. Tuberculosis screening: No symptoms or risk factors identified. Fall Risk None identified. Assessment: 07:51 General: Behavior is calm, cooperative, appropriate for age. ph 07:51 Pain: Complains of pain in right lower quadrant and left lower quadrant. Neuro: ph Hirsch Agitation-Sedation Scale (RASS): 0 - Alert and Calm Level of Consciousness is awake, alert, obeys commands, Oriented to person, place, time, situation. Cardiovascular: Capillary refill < 3 seconds in bilateral fingers Patient's skin is warm and dry. Respiratory: Airway is patent Respiratory effort is even, unlabored. GI: Abdomen is non-distended, Bowel sounds present X 4 quads. Abd is soft X 4 quads Abdomen is tender to palpation X 4 quads. : Reports pain in bilateral lower quadrant(s) Denies burning with urination, urinary frequency. Derm: Skin is healthy with good turgor, Skin is pink, warm \T\ dry. Musculoskeletal: Circulation, motion, and sensation intact. Range of motion: intact in all extremities. 09:20 Reassessment: Patient appears in no apparent distress at this time. Patient and/or ph family updated on plan of care and expected duration. Pain level reassessed. Patient is alert, oriented x 3, equal unlabored respirations, skin warm/dry/pink. Vital Signs: 07:36 BP 121 / 71; Pulse 88; Resp 16; Temp 99.2; Pulse Ox 97% on R/A; Weight 60.33 kg; Height iw 5 ft. 1 in. (154.94 cm); Pain 9/10; 08:40 BP 110 / 54; Pulse 58; Resp 18; Pulse Ox 95% on R/A; ph 09:21 BP 115 / 47; Pulse 63; Resp 18; Pulse Ox 96% on R/A; ph 10:30 BP 112 / 52; Pulse 61; Resp 16; Pulse Ox 96% on R/A; ph 11:33 BP 103 / 57; Pulse 58; Resp 18; Temp 98.1; Pulse Ox 98% on R/A; ph 07:36 Body Mass Index 25.13 (60.33 kg, 154.94 cm) iw ED Course: 07:30 Patient arrived in ED. am2 07:30 Dimitris Andrade MD is Private Physician. am2 07:31 Saqib Garces MD is Attending Physician. kdr 07:37 Triage completed. iw 07:40 Arm band placed on. iw 07:50 Nu Rodriguez, RN is Primary Nurse. ph 08:10 Initial lab(s) drawn, by me, sent to lab. Inserted saline lock: 22 gauge in right ph antecubital area, using aseptic technique. Blood collected. 08:40 Patient has correct armband on for positive identification. Bed in low position. Call ph light in reach. Pulse ox on. NIBP on. Door closed. Noise minimized. Warm blanket given. Pillow given. 08:53 Abdomen In Process Unspecified. EDMS 09:35 Troponin High Sensitivity Sent. jd3 10:16 Troponin High Sensitivity Sent. jd3 11:11 Dimitris Andrade MD is Referral Physician. kdr 11:34 No provider procedures requiring assistance completed. IV discontinued, intact, ph bleeding controlled, No redness/swelling at site. Pressure dressing applied. Administered Medications: 08:15 Drug: Zofran (Ondansetron) 4 mg Route: IVP; Site: right antecubital; ph 09:48 Follow up: Response: No adverse reaction; Nausea is decreased ph 08:15 Drug: NS 0.9% 500 ml Route: IV; Rate: bolus; Site: right antecubital; ph 09:48 Follow up: Response: No adverse reaction; IV Status: Completed infusion; IV Intake: ph 500ml 08:17 Drug: Pepcid (famotidine) 20 mg Route: IVP; Site: right antecubital; ph 09:48 Follow up: Response: No adverse reaction ph 08:19 Drug: morphine 4 mg Route: IVP; Infused Over: 4 mins; Site: right antecubital; ph 09:47 Follow up: Response: No adverse reaction; Pain is decreased; RASS: Alert and Calm (0) ph 09:47 Drug: LevaQUIN (levofloxacin) 500 mg Route: PO; ph 10:00 Follow up: Response: No adverse reaction ph 09:47 Drug: Flagyl (metroNIDAZOLE) 500 mg Route: PO; ph 10:00 Follow up: Response: No adverse reaction ph Medication: 08:40 VIS not applicable for this client. ph Intake: 09:48 IV: 500ml; Total: 500ml. ph Outcome: 11:12 Discharge ordered by . kdr 11:34 Discharged to home ambulatory, with family. ph 11:34 Condition: good 11:34 Discharge instructions given to patient, family, Instructed on discharge instructions, follow up and referral plans. medication usage, Demonstrated understanding of instructions, follow-up care, medications, Prescriptions given X 4. 11:34 Patient left the ED. ph Signatures: Dispatcher [employer] EDSaqib Kingston MD MD kdr Williams, Irene, RN RN iw Hall, Patricia, RN RN ph Moreno, Amanda am2 Davies, Jonathon, RN RN jd3
--- NOTE | 2022-05-31 11:13 | EDPHYS ---
Physician Documentation [facility] Name: Francheska Dotson Age: 76 yrs Sex: Female : 1945 Arrival Date: 05/31/2022 Time: 07:30 Bed 8 Private MD: Dimitris Andrade R ED Physician Saqib Garces HPI: 05/31 08:02 This 76 yrs old Female presents to ER via Ambulatory with complaints of Abdominal Pain. kdr 08:02 The patient presents with abdominal pain in the lower abdomen, that is diffuse. Onset: kdr The symptoms/episode began/occurred gradually, Tuesday. Severity of pain: At its worst the pain was severe incapacitating just prior to arrival, in the emergency department the pain has improved moderately. The patient has not experienced similar symptoms in the past. The patient has not recently seen a physician. Patient complains of severe lower abdominal pain that started Tuesday. She has had some nausea but no vomiting. She had a normal BM yesterday. She has not had this kind of pain before. She is nontoxic-appearing on initial presentation.. Historical: - Allergies: 07:37 PENICILLINS; iw - Home Meds: 07:37 Eliquis 5 mg oral tab 2 times per day [Active]; atorvastatin 20 mg oral tab once daily iw [Active]; olmesartan 20 mg oral tab once daily [Active]; pantoprazole 40 mg oral TbEC once daily [Active]; - PMHx: 07:37 Atrial Fib; Hypertension; Rheumatoid Arthritis; iw - PSHx: 07:37 knee; Cholecystectomy; ovary removed; iw - Immunization history:: Adult Immunizations not immunized. - Social history:: Smoking status: Patient denies any tobacco usage or history of. ROS: 08:02 Constitutional: Negative for fever, chills, and weight loss, Eyes: Negative for injury, kdr pain, redness, and discharge, Neck: Negative for injury, pain, and swelling, Cardiovascular: Negative for chest pain, palpitations, and edema, Respiratory: Negative for shortness of breath, cough, wheezing, and pleuritic chest pain, Back: Negative for injury and pain, : Negative for injury, bleeding, discharge, and swelling, MS/Extremity: Negative for injury and deformity, Skin: Negative for injury, rash, and discoloration, Neuro: Negative for headache, weakness, numbness, tingling, and seizure activity. Psych: Negative for depression, anxiety, suicide ideation, homicidal ideation, and hallucinations, Allergy/Immunology: Negative for hives, rash, and allergies, Endocrine: Negative for neck swelling, polydipsia, polyuria, polyphagia, and marked weight changes, Hematologic/Lymphatic: Negative for swollen nodes, abnormal bleeding, and unusual bruising. 08:02 Abdomen/GI: Positive for abdominal pain, nausea, Negative for abdominal cramps, abdominal distension, anorexia, dysphagia, hematemesis, black/tarry stool, rectal pain, rectal bleeding, bowel incontinence. Exam: 08:02 Constitutional: This is a well developed, well nourished patient who is awake, alert, kdr and in no acute distress. Head/Face: Normocephalic, atraumatic. Eyes: Pupils equal round and reactive to light, extra-ocular motions intact. Lids and lashes normal. Conjunctiva and sclera are non-icteric and not injected. Cornea within normal limits. Periorbital areas with no swelling, redness, or edema. Neck: Trachea midline, no thyromegaly or masses palpated, and no cervical lymphadenopathy. Supple, full range of motion without nuchal rigidity, or vertebral point tenderness. No Meningismus. Chest/axilla: Normal chest wall appearance and motion. Nontender with no deformity. No lesions are appreciated. Cardiovascular: Regular rate and rhythm with a normal S1 and S2. No gallops, murmurs, or rubs. Normal PMI, no JVD. No pulse deficits. Respiratory: Lungs have equal breath sounds bilaterally, clear to auscultation and percussion. No rales, rhonchi or wheezes noted. No increased work of breathing, no retractions or nasal flaring. Back: No spinal tenderness. No costovertebral tenderness. Full range of motion. Skin: Warm, dry with normal turgor. Normal color with no rashes, no lesions, and no evidence of cellulitis. MS/ Extremity: Pulses equal, no cyanosis. Neurovascular intact. Full, normal range of motion. Neuro: Awake and alert, GCS 15, oriented to person, place, time, and situation. Cranial nerves II-XII grossly intact. Motor strength 5/5 in all extremities. Sensory grossly intact. Cerebellar exam normal. Normal gait. Psych: Awake, alert, with orientation to person, place and time. Behavior, mood, and affect are within normal limits. 08:02 Abdomen/GI: Inspection: abdomen appears normal, Bowel sounds: active, all quadrants, Palpation: soft, mild abdominal tenderness, in the abdomen diffusely, mass, is not appreciated, rebound tenderness, is elicited in all quadrants, voluntary guarding, no appreciated organomegaly, tenderness to percussion, is appreciated in all quadrants. Vital Signs: 07:36 BP 121 / 71; Pulse 88; Resp 16; Temp 99.2; Pulse Ox 97% on R/A; Weight 60.33 kg; Height iw 5 ft. 1 in. (154.94 cm); Pain 9/10; 08:40 BP 110 / 54; Pulse 58; Resp 18; Pulse Ox 95% on R/A; ph 09:21 BP 115 / 47; Pulse 63; Resp 18; Pulse Ox 96% on R/A; ph 10:30 BP 112 / 52; Pulse 61; Resp 16; Pulse Ox 96% on R/A; ph 11:33 BP 103 / 57; Pulse 58; Resp 18; Temp 98.1; Pulse Ox 98% on R/A; ph 07:36 Body Mass Index 25.13 (60.33 kg, 154.94 cm) iw MDM: 08:02 Data reviewed: vital signs, nurses notes, lab test result(s), radiologic studies. kdr Counseling: I had a detailed discussion with the patient and/or guardian regarding: the historical points, exam findings, and any diagnostic results supporting the discharge/admit diagnosis, lab results, radiology results, the need for outpatient follow up. 11:12 Patient medically screened. kdr 05/31 07:31 Order name: CBC with Diff; Complete Time: 09:17 kdr 05/31 07:31 Order name: CMP; Complete Time: 09:17 kdr 05/31 07:31 Order name: Lipase; Complete Time: 09:17 kdr 05/31 07:34 Order name: CT Abd/Pelvis - IV Contrast Only kdr 05/31 09:27 Order name: Troponin High Sensitivity; Complete Time: 10:35 kdr 05/31 10:05 Order name: Troponin High Sensitivity; Complete Time: 11:04 kdr 05/31 07:31 Order name: IV Saline Lock; Complete Time: 08:28 kdr 05/31 07:38 Order name: Abdomen ; Complete Time: 09:17 EDMS 05/31 07:31 Order name: Labs collected and sent; Complete Time: 08:28 kdr 05/31 09:27 Order name: EKG - Nurse/Tech; Complete Time: 09:47 kdr Administered Medications: 08:15 Drug: Zofran (Ondansetron) 4 mg Route: IVP; Site: right antecubital; ph 09:48 Follow up: Response: No adverse reaction; Nausea is decreased ph 08:15 Drug: NS 0.9% 500 ml Route: IV; Rate: bolus; Site: right antecubital; ph 09:48 Follow up: Response: No adverse reaction; IV Status: Completed infusion; IV Intake: ph 500ml 08:17 Drug: Pepcid (famotidine) 20 mg Route: IVP; Site: right antecubital; ph 09:48 Follow up: Response: No adverse reaction ph 08:19 Drug: morphine 4 mg Route: IVP; Infused Over: 4 mins; Site: right antecubital; ph 09:47 Follow up: Response: No adverse reaction; Pain is decreased; RASS: Alert and Calm (0) ph 09:47 Drug: LevaQUIN (levofloxacin) 500 mg Route: PO; ph 10:00 Follow up: Response: No adverse reaction ph 09:47 Drug: Flagyl (metroNIDAZOLE) 500 mg Route: PO; ph 10:00 Follow up: Response: No adverse reaction ph Disposition Summary: 05/31/22 11:12 Discharge Ordered Location: Home kdr Problem: new kdr Symptoms: have improved kdr Condition: Stable kdr Diagnosis - Abdominal pain, Generalized kdr - Lower abdominal pain, unspecified kdr - Diverticulitis of large intestine without perforation or abscess without bleeding - kdr Sigmoid Followup: kdr - With: Dimitris Andrade MD - When: 2 - 3 days - Reason: If symptoms return, Further diagnostic work-up, Recheck today's complaints, Continuance of care, Re-evaluation by your physician Discharge Instructions: - Discharge Summary Sheet kdr - High-Fiber Diet kdr - Diverticulitis, [id number] kdr - Abdominal Pain, Adult, [id number] kdr Forms: - Medication Reconciliation Form kdr - Thank You Letter kdr - Antibiotic Education kdr - Prescription Opioid Use kdr Prescriptions: - Flagyl 500 mg Oral Tablet - take 1 tablet by ORAL route every 6 hours for 7 days; 28 tablet; Refills: 0, kdr Product Selection Permitted - Zofran 4 mg Oral Tablet - take 1 tablet by ORAL route every 4-6 hours As needed; 12 tablet; Refills: 0, kdr Product Selection Permitted - Cipro 500 mg Oral Tablet - take 1 tablet by ORAL route every 12 hours for 7 days; 14 tablet; Refills: 0, kdr Product Selection Permitted - Tramadol 50 mg Oral Tablet - take 1 tablet by ORAL route every 8 hours as needed; 12 tablet; Refills: 0, kdr Product Selection Permitted Signatures: Dispatcher [employer] Saqib Prajapati MD MD kdr Williams, Irene, RN RN iw Nu Rodriguez RN RN ph
[2022-05-31 12:02] VITALS: BP 103/57; TEMP 98.1; O2SAT 98
--- NOTE | 2022-06-03 06:06 | EKG ---
Test Date: 2022-05-31 Test Time: 09:42:04 Prepper: PH MEASUREMENT RESULTS: Intervals: Rate: 59 MO: 164 QRSD: 88 QT: 440 QTc: 435 [place]: P: 24 MO: 164 QRS: -41 T: 69 INTERPRETIVE STATEMENTS: Sinus bradycardia Left axis deviation Low voltage QRS Cannot rule out Anterior infarct, age undetermined Abnormal ECG Compared to ECG 11/05/2020 16:57:27 Left-axis deviation now present Low QRS voltage now present Myocardial infarct finding now present ST (T wave) deviation no longer present Electronically Signed On 06-03-22 06:00:36 CDT by Marco Kate
== END 2022-05-31 11:34 | disposition home or self-care (01) ==
LOC: ER 07:23
DX: K57.32 Diverticulitis of large intestine without perforation or abscess without bleeding (principal); R10.84 Generalized abdominal pain; I10 Essential (primary) hypertension; I48.91 Unspecified atrial fibrillation; Z79.01 Long term (current) use of anticoagulants; Z88.0 Allergy status to penicillin
CPT/HCPCS: 96361; 93005; 85025; 36415; 84484 ×2; 83690; 80053; 74177; 96375; 96374; 99284; Q9967; J7040; J2405

== ENCOUNTER 2023-05-23 10:33 | Emergency (ER) | payer OTHER ==
--- OUTSIDE RECORDS SUMMARY | 2023-05-23 10:47 | XMS REPORT | Continuity of Care Document ---
:1945 Author Organization [facility] t Address [address] [place] [address] Care Team Providers Name Role Phone Alex HERNANDEZ, Dimitris Primary Care Physician Rodríguez Chacko MD Attending Clinician Swati HERNANDEZ, Ashlie Hagen Attending Clinician [phone] Lolita Stiles CRNA Attending Clinician [phone] RODRÍGUEZ CHACKO Admitting Clinician Unavailable Payers Payer Name Policy Type Policy Number Effective Date Expiration Date S ource Problems Condition Condition Condition Status Onset Resolution Last Treating Co mments Source Name Details Category Date Date Treatment Clinician Date Rheumatoid Rheumatoid Disease Active Overview : [facility] g of [...] Hospita 00 l Osteopenia Osteopenia Disease Active 0 M ethodi 03-23 00:00: Hospita 00 l [...] Start Date Stop Date Source Natural brother Diabetes [facility] Natural brother Scoliosis [facility] Natural father Alzheimer's disease [facility] mother Stroke [facility] Social History Social Habit Start Date Stop Date Quantity Comments Source Sexual orientation Method [facility] Alcohol intake 2022-03-29 2022-03-29 Current drinker [facility] 00:00:00 00:00:00 of alcohol Hospital (finding) History of Social 2022-03-29 2022-03-[address] function 00:00:00 00:00:00 Hospital Tobacco use and 2017-04-19 2017-04-19 Smokeless Jain exposure 00:00:00 00:00:00 tobacco non-user Hospital Sex Assigned At [birth year] Jain 00:00:00 00:00:00 Hospital Smoking Status Start Date Stop Date Source Never smoked tobacco [facility] Medications Ordered Filled Start Stop Current Ordering Indication Dosage Frequency Signature Comments Components Source Medication Medication Date Date Medication? Clinician (SIG) Name Name apixaban Yes 2.5mg Q.5D Take 2.5 Meth landy (ELIQUIS) 8-[address] 2.5 mg 10:46: mouth 2 Hospita tablet 35 (two) l times a day. apixaban Yes 2.5mg Q.5D Take 2.5 Meth landy (ELIQUIS) 8-[address] 2.5 mg 10:46: mouth 2 Hospita tablet 35 (two) l times a day. olmesartan- Yes 1{tbl} QD Take 1 Me thodi hydrochloro 8-[address] thiazide 10:46: mouth Hospita (BENICAR 06 daily. l HCT) 20-12.5 mg per tablet olmesartan- Yes 1{tbl} QD Take 1 Me thodi hydrochloro 8-[address] thiazide 10:46: mouth Hospita (BENICAR 06 daily. l HCT) 20-12.5 mg per tablet alendronate 2016-08 No Metho di (FOSAMAX) 003-12 st 70 MG 00:00: 00:00 Hospita tablet 00 :00 l amLODIPine 2021- No 2.5mg QD Take 2.5 M ethodi (NORVASC) 03-[address] 2.5 mg 00:00: 00:00 mouth once Hosp mira tablet 00 :00 daily. l atorvastati Yes 20mg QD Take 20 mg Methodi n (LIPITOR) 8-[address] 20 MG 00:00: once Hospita tablet 00 daily. l atorvastati Yes 20mg QD Take 20 mg Methodi n (LIPITOR) 8-[address] 20 MG 00:00: once Hospita tablet 00 daily. l Vital Signs Vital Name Observation Time Observation Value Comments Source Systolic blood 2022-03-12 15:00:00 135 mm[Hg] Method [facility] Hospital pressure Diastolic blood 2022-03-12 15:00:00 63 mm[Hg] [facility] pressure Heart rate 2022-03-12 15:00:00 46 /min [facility] Respiratory rate 2022-03-12 15:00:00 17 /min [facility] Oxygen saturation in 2022-03-12 15:00:00 98 /min [facility] Arterial blood by Pulse oximetry Body temperature 2022-03-12 14:33:00 36.22 Karen [facility] Body height 2022-03-12 14:02:00 157.5 cm [facility] Body weight 2022-03-12 14:02:00 59.875 kg [facility] BMI 2022-03-12 14:02:00 24.14 kg/m2 [facility] Procedures Procedure Date / Time Performing Source Performed Clinician SURGICAL PATHOLOGY REQUEST 2022-03-12 KeltondarlinRodríguez odist 16:49:00 [facility] ESOPHAGOGASTRODUODENOSCOPY (EGD) 2022-03-12 KeltonGuanako saeedrosauraisaac h Jain 14:09:00 Hospital COVID-19 QUALITATIVE RT-PCR 2022-03-10 Rodríguez Chacko [facility] 17:18:00 Hospital Plan of Care Planned Activity Planned Date Details Comments Source Future Scheduled 2023-05-18 COVID-19 VACCINE (#1) [facility] Test 03:30:28 [code = COVID-19 VACCINE (#1)] Future Scheduled 2023-05-18 65+ PNEUMOCOCCAL [facility] Test 03:30:28 VACCINE (1 - PCV) [code = 65+ PNEUMOCOCCAL VACCINE (1 - PCV)] Future Scheduled 2023-05-18 Hepatitis C screening [facility] Test 03:30:28 (procedure) [code = 153856241] Future Scheduled 2023-05-18 SHINGLES VACCINES (1 [facility] Test 03:30:28 of 2) [code = SHINGLES VACCINES (1 of 2)] Future Scheduled 2023-05-18 RSV VACCINES > 60 YR [facility] Test 03:30:28 (1 - 1-dose 60+ series) [code = RSV VACCINES > 60 YR (1 - 1-dose 60+ series)] Future Scheduled 2023-05-18 INFLUENZA VACCINE (#1) [facility] Test 03:30:28 [code = INFLUENZA VACCINE (#1)] Future Scheduled 2022-04-14 HEPATITIS B VACCINES [facility] Test 16:42:22 (1 of 3 - 3-dose series) [code = HEPATITIS B VACCINES (1 of 3 - 3-dose series)] Future Scheduled 2022-04-14 COVID-19 VACCINE (#1) [facility] Test 16:42:22 [code = COVID-19 VACCINE (#1)] Future Scheduled 2022-04-14 65+ [facility]CCAL [facility] 16:42:22 VACCINE (1 - PCV) [code = 65+ PNEUMOCOCCAL VACCINE (1 - PCV)] Future Scheduled 2022-04-14 Hepatitis C screening [facility] Test 16:42:22 (procedure) [code = 737993964] Future Scheduled 2022-04-14 COLONOSCOPY SCREENING [facility] Test 16:42:22 [code = COLONOSCOPY SCREENING] Future Scheduled 2022-04-14 SHINGLES VACCINES (1 [facility] Test 16:42:22 of 2) [code = SHINGLES VACCINES (1 of 2)] Future Scheduled 2022-04-14 INFLUENZA VACCINE [facility] Test 16:42:22 [code = INFLUENZA VACCINE] Encounters Start End Encounter Admission Attending Care Care Encounter Source Date/Time Date/Time Type Type Clinicians Facility Department ID 2022-03-12 2022-03-12 Hospital Yasmin, 1.2.840.1 [id number] Methodi 08:33:00 10:46:00 Encounter Rodríguez [id number] 3.430.2.7 Hospit a .3.246294 l .8 2022-03-12 2022-03-12 Surgery Yasmin, 1.2.840.1 [id number] Method[facility] 09:50:00 10:20:[id number] 3.430.2.7 Hospit a .3.305851 l .8 2022-03-12 2022-03-12 Anesthesia Ashlie Longoriaon 1.2.840. 1 [id number] Methodi 09:12:00 09:34:00 Event Lolita Stiles [id number] 3.430.2.7 Hospit a .3.211395 l .8 2022-03-10 2022-03-10 [facility] [id number] 00:00:00 00:00:00 RODRÍGUEZ [address] 2022-03-10 2022-03-10 Travel 1.2.840.1 [id number] Methodi 00:00:00 00:00:[address] 3.430.2.7 0.2.7.3.698 Ho spita .3.898757 084.8 l .8 Results Test Description Test Time Test Comments Results Result Comments Source Surgical pathology request 2022-03-15 21:05:10 Test Item Value Reference Range Interpretation Comme nts Case number (test code = [id number]) [id number] Surgical pathology report (test code = See link below for PDF Lab R eport 2549) Result status (test code = 9250400) This is Final Report for [id number] 9617[facility] [Presence] in Respiratory specimen by SHIRA with probe [id number] 19:52:54 Test Item Value Reference Range Interpretation Comments SARS-CoV-2 (COVID-19) RNA Not detected [Presence] in Respiratory specimen by SHIRA with probe detection (test code = 26584-4) Whether patient is employed in a Unknown healthcare setting (test code = 77138-7) Whether the patient has symptoms Unknown related to condition of interest (test code = 28749-2) Whether the patient was Unknown hospitalized for condition of interest (test code = 35900-3) Whether the patient was admitted Unknown to intensive care unit (ICU) for condition of interest (test code = 09120-1) Whether patient resides in a Unknown congregate care setting (test code = 73200-5) status (test code = Unknown 44735-8) Date and time of symptom onset Unknown (test code = 07386-5) [facility]
--- NOTE | 2023-05-23 10:52 | EDPHYS ---
Physician Documentation [facility] Name: Francheska Dotson Age: 77 yrs Sex: Female : 1945 Arrival Date: 05/23/2023 Time: 10:33 Bed IW1 Private MD: ED Physician Jacob Garcia HPI: 05/23 10:49 This 77 yrs old Female presents to ER via Unassigned with complaints of Difficulty rn Swallowing. 10:49 The patient presents with a foreign body sensation in the throat. The patient describes rn throat pain as burning, raw. Onset: The symptoms/episode began/occurred this morning. Severity of symptoms: At their worst the symptoms were moderate, in the emergency department the symptoms have improved. Modifying factors: The symptoms are alleviated by nothing, the symptoms are aggravated by foods. Associated signs and symptoms: Pertinent negatives chest pain, fever, shortness of breath, vomiting. The patient has experienced similar episodes in the past. Patient reports history of Schatzki's ring, has not seen GI in a while. Was eating a torta this morning and felt the food gets stuck. Initially was spitting a lot. No vomiting. Feels like the food went down and now is just dealing with some rawness and irritation of the throat. No trouble swallowing or chest pain. Feels much better at this time.. Historical: - Allergies: 10:49 PENICILLINS; iw - PMHx: 10:49 Atrial Fib; Hypertension; Hypertension; Rheumatoid Arthritis; iw - PSHx: 10:49 Cholecystectomy; knee; Ovary removed; iw - Family history:: not pertinent. - Hospitalizations: : No recent hospitalization is reported. ROS: 10:49 Constitutional: Negative for fever, chills, and weight loss, ENT: Sore throat outpatient surgery rn: Negative for chest pain, palpitations, and edema, Respiratory: Negative for shortness of breath, cough, wheezing, and pleuritic chest pain, Abdomen/GI: Negative for abdominal pain, nausea, vomiting, diarrhea, and constipation, Exam: 10:49 Constitutional: This is a well developed, well nourished patient who is awake, alert, rn and in no acute distress. Respiratory: No increased work of breathing, no retractions or nasal flaring. Neuro: Awake and alert, GCS 15 Vital Signs: 10:48 BP 131 / 67; Pulse 89; Resp 16; Temp 97.9; Pulse Ox 100% on R/A; iw MDM: 10:37 Patient medically screened. rn 10:49 Differential diagnosis: Schatzki's ring, esophagitis, food bolus. Data reviewed: vital rn signs, nurses notes, and as a result, I will discharge patient. Counseling: I had a detailed discussion with the patient and/or guardian regarding the historical points, exam findings, and any diagnostic results supporting the discharge/admit diagnosis, the need for outpatient follow up, to return to the emergency department if symptoms worsen or persist or if there are any questions or concerns that arise at home. Response to treatment: the patient's symptoms have markedly improved after treatment, and as a result, I will discharge patient. Special discussion: I discussed with the patient/guardian in detail that at this point there is no indication for admission to the hospital. It is understood, however, that if the symptoms persist or worsen the patient needs to return immediately for re-evaluation. ED course: Patient states feels much better, no longer has food bolus sensation. Vitals normal. Patient request something to ease the burning in the throat but otherwise would like to go home and follow-up with GI.. Administered Medications: 11:03 Drug: GI Cocktail without - (Maalox PO 30 ml, Lidocaine Mucous Membrane 2 % 15 iw ml) PO once Route: PO; Disposition Summary: 05/23/23 10:51 Discharge Ordered Notes: Location: Home rn Problem: an ongoing problem rn Symptoms: have improved rn Condition: Stable rn Diagnosis - Foreign body in esophagus, resolved rn Followup: rn - With: Private Physician - When: As needed - Reason: Recheck today's complaints, Re-evaluation by your physician Discharge Instructions: - Discharge Summary Sheet rn - Esophagitis rn - Esophageal Rings and Webs rn Forms: - Medication Reconciliation Form rn - Thank You Letter rn - Antibiotic rn eligibility - Prescription Opioid Use rn - Patient Portal Instructions rn - Leadership Thank You Letter rn Signatures: Di Gibson RN RN iw Jacob Garcia MD MD rn
--- NOTE | 2023-05-23 10:52 | ER ---
Nurse's Notes [facility] Name: Francheska Dotson Age: 77 yrs Sex: Female : 1945 Arrival Date: 05/23/2023 Time: 10:33 Bed IW1 Private MD: Diagnosis: Foreign body in esophagus, resolved Presentation: 05/23 10:48 Chief complaint: Patient states: had a food bolus, still feels residual irritation. iw Coronavirus screen: At this time, the client does not indicate any symptoms associated with coronavirus-19. Ebola Screen: Patient negative for fever greater than or equal to 101.5 degrees Fahrenheit, and additional compatible Ebola Virus Disease symptoms Patient denies exposure to infectious person. Patient denies travel to an Ebola-affected area in the 21 days before illness onset. No symptoms or risks identified at this time. Initial Sepsis Screen: Does the patient meet any 2 criteria? No. Patient's initial sepsis screen is negative. Does the patient have a suspected source of infection? No. Patient's initial sepsis screen is negative. Risk Assessment: Do you want to hurt yourself or someone else? Patient reports no desire to harm self or others. Onset of symptoms was May 23, 2023. 10:48 Method Of Arrival: Ambulatory iw 10:48 Acuity: HARSH 4 iw Historical: - Allergies: 10:49 PENICILLINS; iw - PMHx: 10:49 Atrial Fib; Hypertension; Hypertension; Rheumatoid Arthritis; iw - PSHx: 10:49 Cholecystectomy; knee; Ovary removed; iw - Family history:: not pertinent. - Hospitalizations: : No recent hospitalization is reported. Vital Signs: 10:48 BP 131 / 67; Pulse 89; Resp 16; Temp 97.9; Pulse Ox 100% on R/A; iw ED Course: 10:36 Patient arrived in ED. im 10:37 Jacob Garcia MD is Attending Physician. rn 10:49 Triage completed. iw 11:03 Di Gibson RN is Primary Nurse. iw Administered Medications: 11:03 Drug: GI Cocktail without - (Maalox PO 30 ml, Lidocaine Mucous Membrane 2 % 15 iw ml) PO once Route: PO; Outcome: 10:51 Discharge ordered by . rn 11:03 Patient left the ED. iw Signatures: Di Gibson RN Jacob Davidson MD MD rn Radha Wynne im
[2023-05-23] MEDS ORDERED: MAGNES/ALUMIN/SIMET 30ML UCUP ONE (11:04)
== END 2023-05-23 11:03 | disposition home or self-care (01) ==
LOC: ER 10:33
DX: T18.128A Food in esophagus causing other injury, initial encounter (principal)
CPT/HCPCS: 99282